=== PATIENT | male | born 1985 | race Caucasian/White ===

== ENCOUNTER 2019-02-05 02:00 | Emergency (ER) | payer OTHER ==
[~2019-02-05] VITALS: Ht 175.3 cm; Wt 74.8 kg
[2019-02-05] MEDS ORDERED: HYDROCODON-ACE1 EAC8 PO (03:21)
[2019-02-05 03:46] VITALS: BP 125/83
== END 2019-02-05 03:49 | disposition home or self-care (01) ==
LOC: M.ERS 02:00
DX: S42.001A Fracture of unspecified part of right clavicle, initial encounter for closed fracture (principal); V86.99XA Unspecified occupant of other special all-terrain or other off-road motor vehicle injured in nontraffic accident, initial encounter; Y93.89 Activity, other specified; Y92.89 Other specified places as the place of occurrence of the external cause; Y99.8 Other external cause status

== ENCOUNTER 2019-06-12 10:09 | Emergency (ER) | payer OTHER ==
[~2019-06-12] VITALS: Ht 175.3 cm; Wt 79.4 kg
[~2019-06-12 10:09] MED LIST: HYDROCODON-ACE1 EAC8 PO
[2019-06-12] MEDS ORDERED: PERCOCET 5-3251 EACH PO (12:25)
[2019-06-12] MEDS ORDERED: IBUPROFEN 800800 M1 PO (12:26)
[2019-06-12 13:17] VITALS: BP 125/77
== END 2019-06-12 13:17 | disposition home or self-care (01) ==
LOC: M.ERS 10:09
DX: S83.411A Sprain of medial collateral ligament of right knee, initial encounter (principal); X50.1XXA Overexertion from prolonged static or awkward postures, initial encounter; Y93.61 Activity, american tackle football; Y92.89 Other specified places as the place of occurrence of the external cause; Y99.8 Other external cause status